=== PATIENT | male | born 1955 | race Caucasian/White ===

== ENCOUNTER → 2018-04-04 | Outpatient (CLI) | payer BC ==
--- NOTE | 2018-04-04 14:29 | PCVCIMAG ---
EXAM: BILATERAL CAROTID DUPLEX INDICATION: Carotid Occlusive Disease. FINDINGS: Doppler Measurements (centimeters per second): RIGHT: Peak CCA-82, Peak ECA-127, Diastolic ICA-32, Peak ICA-84, ICA/CCA Ratio-1.0. LEFT: Peak CCA-78, Peak ECA-86, Diastolic ICA-31, Peak ICA-75, ICA/CCA Ratio-0.8. RIGHT CAROTID: The carotid bulb has minimal plaque. The proximal internal carotid artery shows no significant stenosis. The common carotid artery shows no significant stenosis. The external carotid artery shows no significant stenosis. LEFT CAROTID: The carotid bulb has mild plaque. The proximal internal carotid artery shows <40% stenosis. The common carotid artery shows no significant stenosis. The external carotid artery shows no significant stenosis. Antegrade flow in both vertebral arteries. IMPRESSION: No significant stenosis of the right internal carotid artery with minimal plaque. <40% stenosis of the left internal carotid artery with mild plaque. LOC:[place] [id number]
--- NOTE | 2018-04-04 15:05 | PCVCIMAG ---
EXAM: ULTRASOUND OF THE THYROID INDICATION: Thyroid nodules. FINDINGS: The right thyroid lobe measures 2.2 x 2.4 x 5.5 cm. The left thyroid lobe measures 1.9 x 2.3 x 5.3 cm. 0.5 x 0.5 x 1.0 cm hypoechoic solid nodule mid upper right thyroid lobe laterally. 0.3 x 0.4 x 0.5 cm hypoechoic solid nodule mid right thyroid lobe. 0.4 x 0.6 x 0.6 cm hypoechoic solid nodule mid right thyroid lobe with possible peripheral calcification. No left thyroid lobe nodules. IMPRESSION: 3 small right thyroid lobe nodules as described. No prior studies for comparison. Interval follow-up is suggested. LOC:[id number]
--- NOTE | 2018-04-05 13:26 | PCVCIMAG ---
APPROVED REPORT Study performed: 04/04/2018 15:14:03 Exam: Stress Echocardiogram Indication: Hyperlipidemia Stress Nurse: Fernanda Jonas RN Status: routine Ht: 5 ft 9 in HR: 68 bpm BP: 124/78 mmHg Rhythm: NSR Medical History Medical History: Smoking Procedure The patient underwent an Exercise Stress Test using the Mello Protocol. Blood pressure, heart rate, and EKG were monitored. An Echocardiogram was performed by certified appliance service technician in four stages in quad fashion. At peak stress, four selected images were obtained and placed side by side with resting images for comparison. Stress Test Details Stress Test: Exercise stress testing was performed using a Mello protocol. HR Resting HR: 68 bpmMax Heart Rate (APMHR): 160 bpm Max HR Achieved: 153 bpmTarget HR (85% APMHR): 136 bpm % of APMHR: 95 Recovery HR: 104 bpm HR response to stress: Normal HR response to stress BP Resting BP: 124/78 mmHg Max BP: 186/76 mmHg Recovery BP: 138/82 mmHg ECG Resting ECG: Sinus Rhythm Stress ECG: Sinus Rhythm Recovery ECG: Sinus Rhythm Clinical Reason for Termination: Maximal effort Exercise duration: 10 min 00 sec Highest Stage Achieved: Stage 4: 4.2 mph at 16% grade. Exercise capacity: 13.40 METs Overall Exercise Capacity for Age: Good Stress ECG Conclusion ECG: Non-ischemic Clinical: Non-ischemic Pre-Stress Echo The resting Echocardiogram showed normal left ventricular contractility with an estimated Ejection Fraction of about >55%. Normal wall motion in all segments on baseline images. Post-Stress Echo The stress Echocardiogram showed normal left ventricular contractility with an estimated Ejection Fraction of about 60-65%. Normal augmentation of wall motion in all segments on post stress images. Clinical No clinical or ECG evidence for ischemia. Conclusion Clinical Response: Non-ischemic Exercise Capacity: Average Stress ECG Response: Non-ischemic Stress Echo Images: Non-ischemic The left ventricle is normal in size and wall thickness in both the rest and stress images. Other Information Study Quality: Adequate <Conclusion> The left ventricle is normal in size and wall thickness in both the rest and stress images.
== END | disposition home or self-care (01) ==
LOC: PCVCIMAG 16:14
PROVIDERS: ATTEND Internal Medicine Cardiovascular Disease
DX: R09.89 Other specified symptoms and signs involving the circulatory and respiratory systems (principal); I65.22 Occlusion and stenosis of left carotid artery; E04.1 Nontoxic single thyroid nodule; R53.83 Other fatigue; R07.9 Chest pain, unspecified; F17.200 Nicotine dependence, unspecified, uncomplicated; E78.5 Hyperlipidemia, unspecified
CPT/HCPCS: 76536; 93325; 93351; 93880

== ENCOUNTER → 2019-04-14 | Outpatient (CLI) | payer BC ==
--- NOTE | 2019-04-14 15:45 | PCVCIMAG ---
EXAM: ULTRASOUND OF THE THYROID INDICATION: Thyroid nodules. FINDINGS: The right thyroid lobe measures 2.3 x 2.7 x 4.8 cm. The left thyroid lobe measures 1.7 x 1.9 x 5.4 cm. 0.4 x 0.7 x 1.0 cm solid nodule mid to upper pole right thyroid lobe similar to 2018 study. .3 x 0.4 x 0.5 cm solid nodule medial mid right thyroid lobe similar to prior study. 0.4 x 0.6 x 0.8 cm mid right thyroid solid nodule with calcification also similar to prior study. In the mid/upper left thyroid lobe is a 0.3 x 0.4 x 0.7 cm hypoechoic solid nodule which was not definitely identified previously. IMPRESSION: 3 right thyroid lobe nodule similar to 2018 study. 0.7 cm hypoechoic solid nodule mid left thyroid lobe was not definitely identified on previous study. Interval follow-up of these findings with consideration for ENT consultation may be of value. LOC:[id number]
== END | disposition home or self-care (01) ==
LOC: PCVCIMAG 12:44
PROVIDERS: ATTEND Internal Medicine Cardiovascular Disease
DX: E04.2 Nontoxic multinodular goiter (principal); E78.01 Familial hypercholesterolemia; I65.23 Occlusion and stenosis of bilateral carotid arteries; E78.5 Hyperlipidemia, unspecified; F17.200 Nicotine dependence, unspecified, uncomplicated; Z72.89 Other problems related to lifestyle; Z79.899 Other long term (current) drug therapy
CPT/HCPCS: 76536